=== PATIENT | female | born 1950 | race Caucasian/White ===

== ENCOUNTER → 2019-05-21 | Outpatient (CLI) | payer MEDICARE, OTHER ==
[~2019-05-21] MED LIST: DICY10 PO; MULT-415 PO; biest TP; progesterone PO
== END | disposition home or self-care (01) ==
LOC: RAH 15:41
PROVIDERS: ATTEND Physical Medicine & Rehabilitation
DX: M47.817 Spondylosis without myelopathy or radiculopathy, lumbosacral region (principal); M51.26 Other intervertebral disc displacement, lumbar region; M48.061 Spinal stenosis, lumbar region without neurogenic claudication; N28.1 Cyst of kidney, acquired
CPT/HCPCS: 72148

== ENCOUNTER → 2019-06-13 | Outpatient (CLI) | payer MEDICARE, OTHER | END | disposition home or self-care (01) | LOC: RAH 16:20 | PROVIDERS: ATTEND Physical Medicine & Rehabilitation | DX: M11.262 Other chondrocalcinosis, left knee (principal); M11.261 Other chondrocalcinosis, right knee | CPT/HCPCS: 73560 ==

== ENCOUNTER → 2020-03-06 | Outpatient (CLI) | payer MEDICARE, OTHER ==
[~2020-03-06] MED LIST changes: +GADODIAMIDE 10 MMOL/20 ML VIAL IV ONE
== END | disposition home or self-care (01) ==
LOC: RAH 07:46
PROVIDERS: ATTEND Internal Medicine
DX: G31.9 Degenerative disease of nervous system, unspecified (principal); G52.1 Disorders of glossopharyngeal nerve
CPT/HCPCS: 70553; A9579

== ENCOUNTER → 2024-01-01 | Outpatient (CLI) | payer MEDICARE, OTHER ==
[~2024-01-01] MED LIST changes: -GADODIAMIDE 10 MMOL/20 ML VIAL IV ONE
== END | disposition home or self-care (01) ==
LOC: RAH 11:47
PROVIDERS: ATTEND Physical Medicine & Rehabilitation
DX: M47.812 Spondylosis without myelopathy or radiculopathy, cervical region (principal); M48.02 Spinal stenosis, cervical region
CPT/HCPCS: 72050

== ENCOUNTER → 2024-01-09 | Outpatient (CLI) | payer MEDICARE, OTHER | END | disposition home or self-care (01) | LOC: RAH 08:19 | PROVIDERS: ATTEND Physical Medicine & Rehabilitation | DX: M48.02 Spinal stenosis, cervical region (principal); M50.322 Other cervical disc degeneration at C5-C6 level | CPT/HCPCS: 72141 ==

== ENCOUNTER → 2024-02-01 | Outpatient (CLI) | payer MEDICARE, OTHER | END | disposition home or self-care (01) | LOC: RAH 10:54 | PROVIDERS: ATTEND Physical Medicine & Rehabilitation | DX: M17.0 Bilateral primary osteoarthritis of knee (principal); M25.78 Osteophyte, vertebrae; M11.261 Other chondrocalcinosis, right knee | CPT/HCPCS: 73502; 73521; 73562 ==

== ENCOUNTER → 2024-05-13 | Outpatient (CLI) | payer MEDICARE, OTHER ==
--- NOTE | 2024-05-13 16:04 | HMCIMG ---
MR SPINAL CANAL, THORAC WO CON HISTORY: Pain to bilateral lower extremities COMPARISON: None TECHNIQUE: MRI of the thoracic spine was performed utilizing multiple pulse sequences in axial, coronal and sagittal plane. Patient was not given contrast through intravenous route. FINDINGS: No abnormal signal intensity is seen of the visualized bony structure. No loss of vertebral height is seen. Degenerative disc signals are present at all thoracic spine levels. The thoracic cord is of normal signal intensity without cord compression or impingement. There are mild degenerative changes with spondylosis. No focal disc herniation or neural foraminal stenosis is seen. IMPRESSION: 1. No focal disc herniation or neural foraminal stenosis. Mild DJD.
== END | disposition home or self-care (01) ==
LOC: RAH 14:45
PROVIDERS: ATTEND Family Medicine
DX: M47.814 Spondylosis without myelopathy or radiculopathy, thoracic region (principal); M48.04 Spinal stenosis, thoracic region; E55.9 Vitamin D deficiency, unspecified
CPT/HCPCS: 72146

== ENCOUNTER → 2024-06-05 | Outpatient (CLI) | payer MEDICARE, OTHER ==
--- NOTE | 2024-06-05 13:18 | HMCIMG ---
MR HIP RIGHT WO REASON: G57.11 Meralgia paresthetica, right lower limb COMPARISON: None TECHNIQUE: Routine imaging protocol was performed in the sagittal, axial and coronal plane with T1, proton density, T2 and gradient recalled sequences. FINDINGS: Proximal femur appears normal. The acetabulum is unremarkable. Hip joint space appears preserved. Visualized portions of the right hemipelvis appear normal. Muscles and tendons appear normal. There are no focal areas of inflammation or fluid. There is no joint effusion. Subcutaneous soft tissues appear unremarkable. There are no focal masses. There are no focal areas of abnormal signal intensity. IMPRESSION: 1. Normal MRI of the right hip.
== END | disposition home or self-care (01) ==
LOC: RAH 11:07
PROVIDERS: ATTEND Physical Medicine & Rehabilitation
DX: G57.11 Meralgia paresthetica, right lower limb (principal); E55.9 Vitamin D deficiency, unspecified; M48.04 Spinal stenosis, thoracic region
CPT/HCPCS: 73721